=== PATIENT | male | born 1995 | race Caucasian/White ===

== ENCOUNTER 2017-05-31 13:07 | Emergency (ER) | payer MEDICAID ==
[2017-05-31 13:07] VITALS: BMI 28.0
[2017-05-31 13:17] VITALS: RESP 18; TEMP 98.9
--- NOTE | 2017-05-31 13:28 | ED PDOC ---
Arrival/HPI - General Chief Complaint: Lower Extremity Problem/Injury Time Seen by Provider: 05/31/17 13:12 - History of Present Illness Narrative History of Present Illness (Text): 22 y/o M c PMHx autism p/w toe pain x 3 days. Running, struck toe against vaccuum quill cleaner, with pain since then. Pain is sharp, worse with mvoemetn or palpation. Denies numbness, weakness, fever. Past Medical History - Infectious Disease Hx of Infectious Diseases: None - Tetanus Immunization Tetanus Immunization: Up to Date - Integumentary Hx Dermatological Disorder: Yes Other/Comment: Impetigo - Psychiatric Hx Psychophysiologic Disorder: Yes Hx Substance Use: No Other/Comment: autism - Anesthesia Hx Anesthesia: No Hx Anesthesia Reactions: No Hx Malignant Hyperthermia: No Family/Social History Family/Social History: No Known Family HX Smoking Status: Never Smoked Hx Alcohol Use: No Hx Substance Use: No Allergies/Home Meds Allergies/Adverse Reactions: Allergies No Known Allergies Allergy (Verified 01/26/15 15:46) Review of Systems - Physician Review All systems were reviewed & negative as marked: Yes - Review of Systems Constitutional: absent: Fevers Cardiovascular: absent: Chest Pain Physical Exam - Physical Exam Narrative Physical Exam (Text): Gen: NAD Extremities: Tenderness to R foot, 4th digit with FROM and mild swelling. CV: Regular rate. DP pulse 2+. Cap refill < 2 seconds. Neuro: Sensation intact to light touch in digit. Motor 5/5 in toe, ankle. Skin: Mild ecchymosis surrounding digit. Vital Signs Temp Pulse Resp BP Pulse Ox 05/31/17 13:07 98.9 F 71 18 124/77 98 Medical Decision Making ED Course and Treatment: XR foot/ankle. Mother and patient declined pain medication. Ankle XR no fracture. Foot XR shows fx of distal phalanx of 4th digit, no displacement. Parth tape applied, hard soled shoe, f/u PMD/podiatry, return to ED for worsening pain, fever, vomiting, dyspnea, or any other problem. - RAD Interpretation Radiology Orders: 05/31/17 13:28 ANKLE RIGHT 3 VIEWS ROUTINE [RAD] Stat FOOT RIGHT 3 VIEWS ROUTINE [RAD] Stat Disposition/Present on Arrival - Present on Arrival Any Indicators Present on Arrival: No History of DVT/PE: No History of Uncontrolled Diabetes: No Urinary Catheter: No History of Decub. Ulcer: No History Surgical Site Infection Following: None - Disposition Have Diagnosis and Disposition been Completed?: Yes Diagnosis: Toe fracture Disposition: HOME/ ROUTINE Disposition Time: 15:58 Patient Plan: Discharge Condition: STABLE Discharge Instructions (ExitCare): Toe Fracture (ED) Referrals: Jessy Putnam MD [Primary Care Provider] - Follow up with primary Forms: [employer] ([place])
[2017-05-31 16:02] VITALS: BP 119/72; PULSE 73; O2SAT 99
--- NOTE | 2017-05-31 16:17 | RAD ---
PROCEDURE: Right ankle radiographs Right foot radiographs HISTORY: ankle pain, toe pain COMPARISON: None available. FINDINGS: BONES: No acute displaced fracture. JOINTS: No dislocation. SOFT TISSUES: Unremarkable. No evidence of radiopaque foreign body. OTHER FINDINGS: None. IMPRESSION: No acute displaced fracture, dislocation, or significant joint effusion identified. If symptoms persist or if there is clinical concern, x-ray follow-up in 7-10 days should be considered.
== END 2017-05-31 16:21 | disposition home or self-care (01) ==
LOC: ED 13:07
DX: S92.531A Displaced fracture of distal phalanx of right lesser toe(s), initial encounter for closed fracture (principal); W22.8XXA Striking against or struck by other objects, initial encounter; Y93.02 Activity, running; F84.0 Autistic disorder